=== PATIENT | female | born 1985 | race Caucasian/White ===

== ENCOUNTER 2023-12-03 22:12 | Emergency (ER) | payer SELFPAY ==
[~2023-12-03] VITALS: Ht 167.6 cm; Wt 81.6 kg
[2023-12-03 22:13] VITALS: BP 131/89; PULSE 95; RESP 20; O2SAT 99
[2023-12-03 23:33] LABS: BILIRUBIN,URINE NEGATIVE (NEGATIVE); BLOOD, URINE TRACE-I (NEGATIVE); COLOR,URINE YELLOW (YELLOW); LEUKOCYTE ESTERASE ,URINE NEGATIVE (NEGATIVE); NITRITE, URINE NEGATIVE (NEGATIVE); PROTEIN,URINE 1+ (NEGATIVE); UGLUCOSE NEGATIVE (NEGATIVE); UROBILINOGEN,URINE 0.2 EU/dL (0.2 - 1)
[2023-12-03 23:36] LABS: APPEARANCE,URINE SLIGHTLY HAZY (CLEAR)
[2023-12-03 23:37] LABS: BACTERIA,URINE 2+ /HPF (None Seen); MUCUS,URINE None Seen /LPF (None Seen); RBC,URINE 0-5 /HPF (0-5); SQUAMOUS EPITHELIAL CELL,UR 0-3 (FEW) /LPF (0-3 (FEW)); WBC,URINE 0-5 /HPF (0-5)
[2023-12-03 23:41] LABS: BASOPHILS % (AUTO) 0.1 % (0.0-2.0); EOSINOPHILS % (AUTO) 0.2 % (0.0-4.0); HEMATOCRIT 38.2 % (36-48); HEMOGLOBIN 12.3 g/dL (12.0-16.0); LYMPHOCYTES # (AUTO) 1.5 K/uL (2.5-16.5); LYMPHOCYTES % (AUTO) 12.6 % (20.5-51.1); MEAN CORPUSCULAR HEMOGLOBIN 26 pg (27-31); MEAN CORPUSCULAR HGB CONC 32 g/dL (33-37); MEAN CORPUSCULAR VOLUME 79.9 fL (80-94); MONOCYTES # (AUTO) 0.5 K/uL (0.8-1.0); MONOCYTES % (AUTO) 4.4 % (1.7-9.3); NEUTROPHILS # (AUTO) 9.7 K/uL (1.8-7.7); NEUTROPHILS % (AUTO) 82.7 % (42.2-75.2); PLATELET COUNT (AUTO) 402 K/uL (140-450); RED BLOOD CELL COUNT(AUTO) 4.78 MIL/uL (4.20-5.40); RED CELL DISTRIBUTION WIDTH 18.4 % (11.6-13.7); WHITE BLOOD COUNT (AUTO) 11.7 K/uL (4.8-10.8)
[2023-12-03] MEDS: HALOPERIDOL IM 5 MG/ML VIAL IVP ONE (23:41)
[2023-12-03] MEDS: NACL 0.9% 1,000 ML IV ONE (23:42)
[2023-12-03] MEDS: diphenhydrAMINE 50 MG/ML VIAL IVP ONE (23:42)
[2023-12-03 23:45] LABS: AMPHETAMINE, URINE NEGATIVE ng/ml (NEG <=1000); BARBITURATE, URINE NEGATIVE ng/ml (NEG <=200); BENZODIAZEPINE, URINE NEGATIVE ng/mL (NEG <=200); CANNABINOID, URINE NEGATIVE ng/mL (NEG <=50); COCAINE, URINE NEGATIVE ng/mL (NEG <=300); OPIATE, URINE NEGATIVE ng/mL (NEG <=2000); PHENCYCLIDINE SCREEN,URINE NEGATIVE ng/mL (NEG <=25)
[2023-12-03 23:49] LABS: ANION GAP 18.3 (8-16); CALCIUM 9.3 mg/dL (8.5-10.1); CARBON DIOXIDE 20.4 mmol/L (21-32); CREATININE 0.8 mg/dL (0.6-1.3)
[2023-12-03 23:51] LABS: POTASSIUM 2.7 mmol/L (3.5-5.1)
[2023-12-04] MEDS: KCL 20 MEQ IN 100 mL PREMIX 100 ML IV ONE (00:09)
[2023-12-04 01:06] LABS: ALBUMIN 4.2 g/dL (3.4-5.0); BILIRUBIN,DIRECT 0.1 mg/dL (0.0-0.3); TOTAL BILIRUBIN 0.6 mg/dL (0.0-1.0); TOTAL PROTEIN, SERUM 7.7 g/dL (6.4-8.2)
[2023-12-04] MEDS: MORPHINE SULFATE 4 MG/ML SYR IVP ONE (01:42)
[2023-12-04] MEDS: ONDANSETRON 4 MG/2 ML VIAL IVP ONE (01:42)
[2023-12-04] MEDS ORDERED: ONDA-188 SL (03:53)
[2023-12-04] MEDS ORDERED: NITR100C7 PO (03:55)
[2023-12-04 04:00] VITALS: BP 117/70; PULSE 74; RESP 20; TEMP 98; O2SAT 99
== END 2023-12-04 04:00 | disposition home or self-care (01) ==
LOC: MED 22:12
DX: A08.4 Viral intestinal infection, unspecified (principal); N39.0 Urinary tract infection, site not specified; Z79.899 Other long term (current) drug therapy
CPT/HCPCS: 36415; 74176; 80048; 80076; 80305; 81001; 81025; 82948; 85025; 96361; 96374; 96375; 99285; J1200; J1630; J2270; J2405; J3480; J7030